=== PATIENT | female | born 1945 | race Caucasian/White ===

== ENCOUNTER 2022-12-31 13:51 | Emergency (ER) | payer MEDICARE ==
[~2022-12-31] VITALS: Ht 162.6 cm; Wt 42.2 kg
[2022-12-31 13:56] VITALS: O2SAT 99
[2022-12-31] MEDS ORDERED: PREDNISONE20 MG PO (17:06)
[2022-12-31] MEDS ORDERED: IBUPROFEN600 MG PO (17:06)
== END 2022-12-31 17:20 | disposition home or self-care (01) ==
LOC: ER 14:13
DX: R10.31 Right lower quadrant pain (principal); K59.00 Constipation, unspecified; E78.5 Hyperlipidemia, unspecified
CPT/HCPCS: 74176; 99283